=== PATIENT | female | born 1980 | race Caucasian/White ===

== ENCOUNTER 2024-01-13 08:57 | Emergency (ER) | payer BC, SELFPAY ==
[2024-01-13 09:01] VITALS: BP 143/109
--- NOTE | 2024-01-13 09:52 | EDRN ---
Rebel REYNOSO in w/ pt
--- NOTE | 2024-01-13 09:58 | ED.GENMED ---
History of Present Illness
General
Chief Complaint: Abdominal Symptoms
Source: patient
Exam Limitations: none
Time Seen by Provider: 01/13/24 09:46
Travel History
Have you had any contact with someone who has COVID-19?: No
Do you have any symptoms of coronavirus? Fever > 100 degrees, chills, cough, shortness of breath, sore throat, loss of taste or smell, muscle aches, or headache?: No
History of Present Illness
History of Present Illness:
43-year-old female otherwise healthy presents with complaints of 3 to 4 days worth of nausea vomiting and diarrhea. Vomiting has slowed but every time she tries to eat something she has watery stool. She has multiple episodes of watery stool
daily. She had a fever at the onset but that has since resolved. No known sick contacts. She has a history of cholecystectomy. No chest pain or shortness of breath. No other complaints at this time.
Past History
Past History
ED Past Medical History: GERD, Psychiatric (Anxiety), Other (RA, anxiety, IBS, PUD, Migraines, ovarian cysts) and Other ('flesh eating bacteria' - RUE)
ED Past Surgical History: and Orthopedic (Joint surgery on her foot, tenosynvectomy and the debridement of the right forearm due to infection)
Social History
Tobacco: Non-smoker
Alcohol: Occasional
Drug: None
Personal:
Living: with family
Employment: Employed
Family History
Family History: Other (reviewed and Noncontributory)
Phy Exam
Physical Exam
Physical Exam:
General: Tired appearing female no acute respiratory distress
HEENT: Normocephalic atraumatic mucosa dry neck is supple heart: Regular rate and rhythm no murmurs
Lungs: Clear to auscultation bilaterally no wheezing
Abdomen soft mildly diffusely tender no guarding or rebound normal bowel sounds nondistended
Extremities: No cyanosis or edema
Skin warm no rash or lesion
Course
Orders/Labs/Results
Orders:
Orders
01/13/24 10:01
0.9% Sodium Chloride 1000 ml [Nss] 1,000 ml IV BOLUS
Ondansetron Injectable [Zofran] 4 mg IV NOW STA
01/13/24 10:15
Complete Blood Count/With Diff Urgent
Comprehensive Metabolic Panel Urgent
Lipase Urgent
01/13/24 11:42
0.9% Sodium Chloride 1000 ml [Nss] 1,000 ml IV BOLUS
01/13/24 12:09
Acetaminophen [Tylenol] 1,000 mg PO NOW STA
Potassium Chloride [KCl] 40 meq PO NOW STA
01/13/24 12:23
Norovirus by PCR Urgent
DAVID Source: Feces/Stool
Specimen Description:
Date Specimen was Collected: 01/13/24
Time Specimen was Collected: 12:22
STOOL [C difficile Antigen & Toxins] Urgent
DAVID Source: Feces/Stool
Specimen Description:
Date Specimen was Collected: 01/13/24
Time Specimen was Collected: 12:22
Stool Culture Urgent
DAVID Source: Feces/Stool
Specimen Description:
Date Specimen was Collected: 01/13/24
Time Specimen was Collected: 12:22
Abnormal Lab Results
01/13/24
10:15
MCH 32.2 H pg
(27.0-31.0)
Absolute Lymphs (auto) 1.1 L 10^3/uL
(1.2-3.4)
Lymphocytes % 19.3 L %
(20.5-51.1)
Potassium 3.2 L mmol/L
(3.5-5.1)
Chloride 109 H mmol/L
(98-107)
Carbon Dioxide 17 L mmol/L
(22-30)
BUN 25 H mg/dl
(7-17)
ALT 37 H U/L
(0-35)
01/13/24 10:15
01/13/24 10:15
Vital Signs
Initial and Last Documented VS:
Initial Vital Signs
Temp Pulse Resp BP Pulse Ox
98.4 F 86 16 143/109 98
01/13/24 09:01 01/13/24 09:01 01/13/24 09:01 01/13/24 09:01 01/13/24 09:01
Last Documented Vital Signs
Temp Pulse Resp BP Pulse Ox
98.4 F 54 16 108/63 98
01/13/24 09:01 01/13/24 12:05 01/13/24 12:05 01/13/24 12:05 01/13/24 12:05
MDM/Problems Addressed
Differential Diagnosis Includes:
Nausea vomiting diarrhea. Question viral illness. Will check stool cultures to evaluate for foodborne illness and norovirus. Abdomen exam quite benign mildly diffuse tender but no localizing tenderness. Hold off on imaging for now but will
hydrate and treat symptoms with Zofran and Toradol. Labs pending
*Critical Care Note
Total Time (30-74mins, 75-104mins- exclusive of procedures): Not Applicable
Update Note
Update Note:
Patient reevaluated. Headache is improved. Color is improved. She was noted to have slightly low potassium this was replaced by mouth. She was given 2 L of fluid. Was notified by nurse of increased right upper quadrant abdominal pain. Prior
cholecystectomy. Reexamination provides diffuse abdominal discomfort. Again discussed the role will hold off for now. Patient idea of going home now she is tolerating oral fluids. Recommended clear liquids and a bland diet from there. Stable
for discharge. Likely viral illness
ED Attending Note
-
Portions of this chart may have been created with voice recognition software.� Occasional wrong word or��sound alike� substitutions may have occurred due to the inherent limitations of voice recognition software.
Discharge Plan
Departure
Patient Disposition: Home (Routine Discharge)
Date of Disposition: 01/13/24
Time of Disposition: 13:33
Patient with high blood pressure during this ER visit?: No
Discharge Problem:
Acute gastroenteritis
Instructions: Nausea and Vomiting, Adult (DC)
Prescriptions:
New
ondansetron 4 mg tablet,disintegrating
4 mg PO Q8H PRN (Reason: nausea and vomiting) Qty: 10 0RF
No Action
topiramate 25 MG tablet
50 mg PO BID
dicyclomine 20 MG tablet
10 mg PO TID
losartan 25 MG tablet
25 mg PO DAILY
Zofran:
4 mg PO Q8HPRN PRN (Reason: nausea)
sucralfate 1 GM/10 ML suspension
1 gm PO BID
Multivitamin
1 tab PO DAILY
omeprazole 20 MG capsule,delayed release(DR/EC)
20 mg PO BID
montelukast 10 MG tablet
1 tab PO DAILY
Tylenol
2 tab PO PRN PRN (Reason: discomfort)
rizatriptan 10 MG tablet
10 mg PO PRN PRN (Reason: breakthrough migraine)
hydrocodone-acetaminophen 1 TABLET tablet
1 - 2 tab PO Q4HPRN PRN (Reason: moderate to severe pain) Qty: 20 0RF
Referrals:
Javier Palacios CRNP [Family Provider] -
Activity Restrictions/Additional Instructions:
Rest. Drink plenty of clear liquids. Use zofran if needed for nausea. Advance to bland diet as tolerated. Return if needed otherwise.
Interventions
Interventions:
*Risk Screen - Suicide Last Done: 01/13/24 10:10
*General Assessment Last Done: 01/13/24 10:10
*Neglect/Abuse Screening Last Done: 01/13/24 10:10
ED- Fall Risk Assessment Last Done: 01/13/24 10:10
*ED COVID-19 Vaccine History Last Done: 01/13/24 09:01
[id number] Assessment Last Done: 01/13/24 10:10
[2024-01-13 10:10] VITALS: BMI 39.9
[2024-01-13] MEDS: NSS 1000 IV ×2 (10:20→12:20)
[2024-01-13] MEDS: ZOFRAN 4 MG IV (10:23)
[2024-01-13 10:24] LABS: % Basophils 0.5 % (0-2); % Eosinophils 1.4 % (0-6); % Immature Granulocytes 0.5 % (0-0.5); % Lymphocytes 19.3 % (20.5-51.1); % Monocytes 8.9 % (1.7-9.3); % Neutrophils 69.4 % (42.2-75.2); Absolute Eosinophils 0.1 10^3/uL (0-0.7); Absolute Lymphocytes 1.1 10^3/uL (1.2-3.4); Absolute Monocytes 0.5 10^3/uL (0.1-0.6); Hematocrit 38.1 % (37.0-47.0); Hemoglobin 13.6 g/dL (12.0-16.0); Mean Corp Hgb Conc. 35.7 g/dL (33.0-37.0); Mean Corpuscular Hgb 32.2 pg (27.0-31.0); Mean Corpuscular Volume 90.1 fL (81.0-99.0); Mean Platelet Volume 10.3 fL (7.4-10.4); Nucleated Red Blood Cells % 0 %; Platelet Count 194 10^3/uL (130-400); Red Blood Cell Count 4.23 10^6/uL (4.20-5.40); Red Cell Dist. Width 12.2 % (11.5-14.5); White Blood Cell Count 5.7 10^3/uL (4.8-10.8)
[2024-01-13 10:32] VITALS: BP 139/82
--- NOTE | 2024-01-13 10:32 | EDRN ---
Receptacle for stool spec placed on toilet w/ pt informed stool spec is needed.
[2024-01-13 10:35] LABS: ALT (SGPT) 37 U/L (0-35); AST (SGOT) 31 U/L (14-36); Albumin 4.3 g/dl (3.5-5.0); Alkaline Phosphatase 72 U/L (38-126); Blood Urea Nitrogen 25 mg/dl (7-17); Calcium 8.9 mg/dl (8.4-10.2); Carbon Dioxide 17 mmol/L (22-30); Chloride 109 mmol/L (98-107); Estimated Creatinine Clearance > 125 ml/min; Glucose 84 mg/dl (70-99); Lipase 65 U/L (23-300); Potassium 3.2 mmol/L (3.5-5.1); Sodium 136 mmol/L (135-145); Total Bilirubin 0.5 mg/dl (0.2-1.3); Total Protein 7.1 g/dl (6.3-8.2); eGFR > 60.00
[2024-01-13 12:05] VITALS: BP 108/63
[2024-01-13] MEDS: KCL 40 MEQ PO (12:20)
[2024-01-13] MEDS: TYLENOL 1000 MG PO (12:21)
[2024-01-13 13:00] VITALS: BP 120/74
--- NOTE | 2024-01-13 13:05 | EDRN ---
Rebel REYNOSO was informed about pt's RUQ abdominal pain radiating into her back at a 7/10, rest of her abdomen dull pain 4/10.
== END 2024-01-13 13:53 | disposition home or self-care (01) ==
LOC: EMR 08:57
PROVIDERS: Physician Assistant; EMERGENCY PHYSICIAN Emergency Medicine; FAMILY PHYSICIAN Nurse Practitioner Family
DX: K52.9 Noninfective gastroenteritis and colitis, unspecified (principal); Z90.49 Acquired absence of other specified parts of digestive tract
CPT/HCPCS: 99284; 96374; 96361 ×2; 80053; 83690; 85025; 87045; 87046; 87324; 87427; 87449; 87798

== ENCOUNTER 2024-04-25 18:12 | Inpatient (IN) | payer BC, SELFPAY ==
[2024-04-25] VITALS (7 sets, daily range): BP systolic 115–156; BP diastolic 71–92; BMI 41.7; BMI 40.6
--- NOTE | 2024-04-25 13:43 | ED.GENMED ---
History of Present Illness
General
Chief Complaint: Chest Pain
Source: patient
Exam Limitations: none
Time Seen by Provider: 04/25/24 13:36
Travel History
Have you had any contact with someone who has COVID-19?: No
Do you have any symptoms of coronavirus? Fever > 100 degrees, chills, cough, shortness of breath, sore throat, loss of taste or smell, muscle aches, or headache?: No
History of Present Illness
History of Present Illness:
See MDM
Past History
Past History
ED Past Medical History: GERD, Psychiatric (Anxiety), Other (RA, anxiety, IBS, PUD, Migraines, ovarian cysts) and Other ('flesh eating bacteria' - RUE)
ED Past Surgical History: and Orthopedic (Joint surgery on her foot, tenosynvectomy and the debridement of the right forearm due to infection)
Social History
Tobacco: Non-smoker
Alcohol: Occasional
Drug: None
Personal:
Living: with family
Employment: Employed
Family History
Family History: Other (reviewed and Noncontributory)
Phy Exam
Physical Exam
Physical Exam:
See MDM
Scores
Heart Score for Chest Pain Patients
STEMI patient?: No
History: Moderately Suspicious
ECG: Normal
Age: </= 45 years
Risk Factors: 1 or 2 Risk Factors
Troponin: >1 - <3 x Normal Limit
Heart Score for Chest Pain Patients: 3
Heart Score Risk: 2.5% MACE over next 6 weeks
Course
Orders/Labs/Results
Orders:
Orders
04/25/24 13:20
ECG [Electrocardiogram (*1)] Urgent
Reason for Study: Chest Pain
EKG- Treatment ONCE
04/25/24 13:31
IV Insert/Care/Rem.- Treatment PRN
04/25/24 13:42
Complete Blood Count/With Diff Urgent
Comprehensive Metabolic Panel Urgent
Troponin I Urgent
04/25/24 13:43
CR Chest - 2 Views Urgent
Comment:
Reason For Exam: left side chest pain
04/25/24 15:35
EKG [Electrocardiogram (*1)] Urgent
Reason for Study: Chest Pain
EKG- Treatment ONCE
04/25/24 15:38
Troponin I Urgent
04/25/24 16:40
Nitroglycerin Sublingual [Nitrostat (Sublingual)] 0.4 mg .ROUTE .STK-MED ONE
04/25/24 16:42
Nitroglycerin Sublingual [Nitrostat (Sublingual)] 0.4 mg SL NOW STA
04/25/24 17:45
PTT Urgent
Prothrombin Time Urgent
Heparin 4,000 units IV NOW STA
Heparin INFUSION titrate rate - CONTINUOUS Heparin 92724 Units/250 ml 25,000 units in 250 ml IV PER PROTOCOL
Weight to be used for heparin protocol in kilograms (kg):: 117.1
Protocol:: Cardiac Tx/Acute Coronary
PTT Goal Range to be used:: PTT 73 to 111 seconds
Order type:: Initial
INITIAL Infusion Dose (UNITS/KG/hr) & then follow protocol:: 15 units/kg/hr
Infusion Dose in UNITS/hr & then follow protocol (UNITS/hr):: 1,500
INFUSION RATE in mL/hr & then follow protocol (mL/hr):: 15
PTT less than or equal to 64 seconds:: Increase rate by 200 units/hr (+ 2 mL/hr)
PTT 64.1 to 72.9 seconds:: Increase rate by 100 units/hr (+ 1 mL/hr)
PTT 73 to 111 seconds:: Target Range. No change in rate.
PTT 111.1 to 130.9 seconds:: Decrease rate by 100 units/hr (- 1 mL/hr)
PTT 131 to 199.9 seconds:: HOLD for 1 hr. Then decrease rate by 200 units/hr (- 2 mL/hr)
PTT greater than or equal to 200 seconds:: HOLD for 2 hrs & Notify Provider. Then decrease by 200 units/hr (-
2 mL/hr)
Lab follow-up:: Each change, PTT q6h until 2 consecutive are therapeutic. Then PTT
daily.
Nitroglycerin Ointment [Nitro-Bid] 1 inch TOPICAL NOW STA
Pharmacy Request to Place See Dose Instructions PO NOW STA
Discontinue all Active Warfarin orders?: Yes
Nursing to Place Non Medication Order As Directed
Physician Order: PTT 6 hours after initial start of Heparin infusion
04/25/24 18:[address] See Dose Instructions IV DIRECTED
Abnormal Lab Results
04/25/24
13:42
RBC 3.85 L 10^6/uL
(4.20-5.40)
Hct 35.4 L %
(37.0-47.0)
MCH 33.8 H pg
(27.0-31.0)
MPV 10.5 H fL
(7.4-10.4)
Immature Gran % 0.6 H %
(0-0.5)
Chloride 113 H mmol/L
(98-107)
Carbon Dioxide 19 L mmol/L
(22-30)
BUN 19 H mg/dl
(7-17)
04/25/24 13:42
04/25/24 13:42
Vital Signs
Initial and Last Documented VS:
Initial Vital Signs
Pulse Resp BP Pulse Ox
66 18 156/92 99
04/25/24 13:18 04/25/24 13:18 04/25/24 13:18 04/25/24 13:18
Last Documented Vital Signs
Pulse Resp BP Pulse Ox
63 22 115/80 98
04/25/24 17:30 04/25/24 17:30 04/25/24 17:00 04/25/24 14:00
MDM/Problems Addressed
Differential Diagnosis Includes:
HPI and MDM Narrative:
44-year-old female presenting with resolving chest pain. Patient was sitting on a computer and she felt a pain in her left shoulder that went down her left arm. This is associated with [id number]. Patient got worried because there is a
strong family history of heart related disease with her father and grandfather. When EMS arrived, they gave aspirin 1 nitroglycerin. Patient states symptoms started to improve.
I discussed with patient that it is somewhat concerning that symptoms did improve with nitro but it does not necessarily mean that she has ACS. Symptoms were unrelated to exertion. Since symptoms did improve with nitro, will obtain 2 troponin rule
out. Given her history, will place on cardiac callback tracker troponins are negative
Physical exam
General: Well appearing and non-toxic
HEENT: protecting airway
Neck: appears supple
CV: No evidence of cyanosis. Regular rate and rhythm
Resp: No accessory muscle use. Lungs clear
Abd: Non-distended
Extremities: No deformities
Neuro: alert
Psych: Normal affect
Skin: Intact
Problems Addressed including Acute and Chronic Conditions affecting care:
1. Chest pain
Acuity: acute
Prognosis: stable
Details: Symptoms did improve with nitroglycerin. However, it was nonexertional. Will obtain 2 troponin rule out. EKG is nonischemic
Updates
The second troponin did come back elevated but still within normal limits. Patient given a second nitroglycerin which did help with symptoms. Given that her symptoms are improving with nitroglycerin and she has a strong family history of cardiac
disease, cardiology was consulted
5:45 PM Case discussed with cardiology at bedside. Will admit on heparin drip for cardiac cath tomorrow. Will place nitroglycerin ointment
Differential Diagnosis (but not limited to): GERD, musculoskeletal pain, ACS
Testing considered: D-dimer but symptoms improving
Drug therapy (if applicable): OTC meds, please see d/c instruction regarding Rx drugs
Amount and/or Complexity of Data Reviewed
Clinical info obtained from: Patient
External data reviewed: N/A
Labs I independently reviewed (but not limited to): Troponin
Radiology: X-ray independently reviewed: Chest x-ray clear
Pulse Ox: not hypoxic
EKG independently reviewed: Sinus rhythm, normal axis, no STEMI
Deputy Felony Clerk: Sinus rhythm
Critical Care: The high probability of a clinically significant, sudden or life threatening deterioration of the cardiovascular system(s) required my full and direct attention, intervention and personal management. The aggregate critical care time
was 33 minutes. This time is in addition to time spent performing reported procedures but includes the following:
[x] Data Review and interpretation
[x] Patient assessment and monitoring of vital signs
[x] Documentation
[x] Medication orders and management
Risk of Complication:
Social Determinants of health: Good social support
Discussed with other providers: Cardiology
Escalation of Care includes Admit/Obs: Given the concern for acute coronary syndrome, will admit on heparin drip
Occasional wrong word or 'sound a like' substitutions may have occurred due to the inherent limitations of voice recognition software. Read the chart carefully and recognize, using context, where substitutions have occurred.
*Critical Care Note
Total Time (30-74mins, 75-104mins- exclusive of procedures): 33 min
ED Attending Note
-
Portions of this chart may have been created with voice recognition software.� Occasional wrong word or��sound alike� substitutions may have occurred due to the inherent limitations of voice recognition software.
Discharge Plan
Departure
Patient Disposition: Admit
Date of Disposition: 04/25/24
Time of Disposition: 17:49
Admit to: Telemetry
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
Discharge Problem:
Chest pain
Prescriptions:
No Action
losartan 50 mg Tablet
50 mg PO DAILY
acetaminophen [Tylenol] 325 mg Tablet
650 mg PO BIDPRN PRN (Reason: mild pain)
diphenoxylate-atropine 2.5-0.025 mg Tablet
1 tab PO QIDPRN PRN (Reason: diarrhea)
Theragen Tablet
1 tab PO DAILY
omeprazole 40 mg Capsule,Delayed Release(Dr/Ec)
40 mg PO DAILY
ondansetron 8 mg Tablet,Disintegrating
8 mg PO [id number] PRN (Reason: nausea/vomiting)
topiramate 100 mg Tablet
200 mg PO DAILY
sertraline 50 mg Tablet
50 mg PO DAILY
dicyclomine 10 mg Capsule
20 mg PO AC
Referrals:
Javier Palacios CRNP [Family Provider] -
Interventions
Interventions:
*Risk Screen - Suicide Last Done: 04/25/24 13:33
*General Assessment Last Done: 04/25/24 13:33
*Neglect/Abuse Screening Last Done: 04/25/24 13:33
*ED COVID-19 Vaccine History Last Done: 04/25/24 13:18
ED- Cardiac Assessment Last Done: 04/25/24 13:33
Discharge Date and Time
Print Language: VIET[place]ESE
[2024-04-25 14:02] LABS: % Basophils 0.7 % (0-2); % Eosinophils 1.8 % (0-6); % Immature Granulocytes 0.6 % (0-0.5); % Monocytes 4.4 % (1.7-9.3); % Neutrophils 71.5 % (42.2-75.2); Absolute Basophils 0.1 10^3/uL (0-0.2); Absolute Eosinophils 0.1 10^3/uL (0-0.7); Absolute Lymphocytes 1.5 10^3/uL (1.2-3.4); Absolute Monocytes 0.3 10^3/uL (0.1-0.6); Absolute Neutrophils 5.1 10^3/uL (1.4-6.5); Hematocrit 35.4 % (37.0-47.0); Mean Corp Hgb Conc. 36.7 g/dL (33.0-37.0); Mean Corpuscular Hgb 33.8 pg (27.0-31.0); Mean Corpuscular Volume 91.9 fL (81.0-99.0); Mean Platelet Volume 10.5 fL (7.4-10.4); Nucleated Red Blood Cells % 0 %; Platelet Count 190 10^3/uL (130-400); Red Blood Cell Count 3.85 10^6/uL (4.20-5.40); Red Cell Dist. Width 12.6 % (11.5-14.5); White Blood Cell Count 7.1 10^3/uL (4.8-10.8)
[2024-04-25 14:10] LABS: ALT (SGPT) 21 U/L (0-35); AST (SGOT) 28 U/L (14-36); Alkaline Phosphatase 70 U/L (38-126); Blood Urea Nitrogen 19 mg/dl (7-17); Calcium 9.1 mg/dl (8.4-10.2); Carbon Dioxide 19 mmol/L (22-30); Chloride 113 mmol/L (98-107); Estimated Creatinine Clearance 117 ml/min; Glucose 91 mg/dl (70-99); Sodium 140 mmol/L (135-145); Total Bilirubin 0.5 mg/dl (0.2-1.3); eGFR > 60.00
[2024-04-25 14:22] LABS: Troponin I < 0.012 ng/ml
[2024-04-25 16:19] LABS: Troponin I 0.021 ng/ml
[2024-04-25] MEDS: NITROSTAT (SUBLINGUAL) 0.400000000000000022 MG SL (16:42)
--- NOTE | 2024-04-25 17:36 | HPS.HSE ---
Addendum entered and electronically signed by Otoniel Pandey MD 04/25/24 17:58:
I saw and examined the patient.
The LIBRARIAN's note was reviewed and I agree with the note.
Comment: 44-year-old female with a past medical history of obesity, hypertriglyceridemia, preeclampsia, family history of premature coronary disease in her father and paternal grandfather, presents for evaluation of chest pain. She states over the
last several days, she has had increased shortness of breath and diaphoresis when walking her dog. She has had to stop and rest. Today, while sitting and working at her desk, she had sudden onset left-sided chest pain that she describes as an ache
radiating up into her left shoulder and down her arm. She does not use NSAIDs. This was an 8-9 out of 10. She called 911 and had no relief until she was given nitroglycerin by EMS. It was not relieved with position. It was not worse with
inspiration. No fever or chills. No recent long travel. She does have reflux, but she states this felt completely different than her reflux. She has history of cholecystectomy. On exam she is a regular rate and rhythm with normal S1-S2 no
murmurs or gallops were appreciated lungs are clear to auscultation bilaterally.She was alert and oriented x 3. Lower extremities were warm well-perfused. Chest x-ray was normal EKG showed sinus rhythm with nonspecific T wave changes. Initial
troponin was negative, she had recurrent pain that required a nitroglycerin. The next troponin was 0.02. Overall, symptoms and history are concerning for unstable angina/ACS. She has risk factors of obesity, hypertriglyceridemia, preeclampsia and
a family history. I discussed this with her and recommended we proceed to cardiac catheterization in the morning. This can be done urgently if needed. Will continue to trend troponin. Will start heparin drip, statin and nitrate. Echocardiogram
to be done in the morning. Differential diagnosis can include gastritis or esophageal spasm, but these seem less likely. They will be considered should her catheterization be normal.
Original Note:
Family Physician
-
Family Physician: AROLDO Zayas
Chief Complaint
-
Chest pain
History of Present Illness
Keiry Kaye is a 44-year-old female with GERD, hypertension, preeclampsia requiring at 35 weeks, dyslipidemia, migraines, obesity, and anxiety disorder who presented to the emergency department with a chief complaint of chest discomfort.
She was sitting at her desk when she had the sudden onset of left-sided chest pain. She describes it as an ache. It radiated down her left arm. She had the sensation of numbness and tingling in her bilateral hands. She endorsed associated
diaphoresis and nausea. The entire episode lasted approximately 30 minutes. She called EMS. She was given aspirin and sublingual nitroglycerin. She received relief with the sublingual nitroglycerin. Upon arrival to the emergency department, her
troponin was found to be <0.012. Her EKG appeared nonischemic. Follow-up troponin 0.021. She also had an episode of chest discomfort while she was here. This sensation was reminiscent of this morning. It was relieved with sublingual
nitroglycerin. Her chest pain is not recent producible. It does not improve with position changes.
Upon further review, she reports walking her 1-year-old puppy. Over the past 2 weeks she has felt more diaphoresis and exhaustion on the same length of walk. She thought this was related to the heat. She feels like she takes a long time to cool
off and recover which is abnormal for her.
Medical History
Past Medical History
Past Medical History: Reports GERD, HTN, Hypercholesterolemia, Psychiatric (Anxiety) and Other (Migraines)
Past Surgical History: Reports Cholecystectomy and Gynocological
Social History
Tobacco: Non-smoker
Alcohol: Occasional
Drug: None
Personal:
Living: With Family
Employment: Employed
Family History
Family History: Early CAD (Grandfather at the age of 35 due to MT. Her father was diagnosed with coronary artery disease in his 50s. He had bypass surgery and from a subsequent MT in his 60s.)
Allergies / Home Medications
Allergies reflects when Allergies were last updated in [facility].
Home Medications with original date entered in [facility]
Allergy/Medication List:
Allergies:
Reglan caused muscle spasm
Lisinopril caused lip swelling
NSAID caused stomach ulcer
Home medication list:
Acetaminophen 650 mg p.o. twice daily as needed mild pain
Dicyclomine 20 mg p.o. AC
Diphenoxylate-atropine 1 tab p.o. 4 times daily as needed diarrhea
Losartan 50 mg daily
Omeprazole 40 mg p.o. daily
Oh dutasteride 8 mg p.o. every 12 hours as needed nausea vomiting
Sertraline 50 mg p.o. daily
Multivitamin 1 tablet p.o. daily
Topiramate 200 mg p.o. daily
Review of Systems
-
A 12 point ROS was completed and negative except as noted: Yes
Constitutional: Reports Fatigue
EENT: Reports No Symptoms
Respiratory: Reports No Symptoms
Cardiac: Reports See HPI
Abdomen/GI: Reports See HPI
: Reports No Symptoms
Musculoskeletal: Reports No Symptoms
Skin: Reports No Symptoms
Neurological: Reports No Symptoms
Endocrine: Reports No Symptoms
Hematologic/Lymphatic: Reports No Symptoms
Psych: Reports No Symptoms
Physical Exam
Vital Signs
Vital Signs
Pulse Resp BP Pulse Ox
66 22 115/80 98
04/25/24 17:15 04/25/24 17:15 04/25/24 17:00 04/25/24 14:00
Physical Exam
General: Well Developed, Well Nourished, No Apparent Distress and Comfortable
HEENT: NormoCephalic, Anicteric and Moist mucous membranes
Respiratory: Clear and Non Labored Respirations
Cardiac: S1/S2 and Regular Rhythm
Breast: Deferred by me
GI: Soft, Non Tender, Non Distended and Normal Bowel Sounds
Rectal: Deferred by Provider
Genito-urinary: Deferred by me
Musculoskeletal: No Clubbing, No Cyanosis and No Edema
Skin: Warm and Dry
Neuro: AO x 3
Hematologic/Lymphatic: No Lymphadenopathy
Psych: Calm
Laboratory Results
-
04/25/24 13:42
04/25/24 13:42
Laboratory Results
Total Bilirubin 0.5 mg/dl (0.2-1.3) 04/25/24 13:42
AST 28 U/L (14-36) 04/25/24 13:42
ALT 21 U/L (0-35) 04/25/24 13:42
Alkaline Phosphatase 70 U/L (38-126) 04/25/24 13:42
Troponin I 0.021 ng/ml D 04/25/24 15:38
Data Reviewed
-
Diagnostic Radiology: Report Reviewed by me (EKG: Sinus rhythm, rate 61; CXR: No acute cardiopulmonary process)
Lab Data: Labs Reviewed by me
Old Records: Reviewed (Outpatient PCP notes)
Impression/Plan
-
BACKGROUND: 44F with GERD, hypertension, preeclampsia requiring at 35 weeks, dyslipidemia, migraines, obesity, and anxiety disorder who presented to the emergency department with a chief complaint of chest discomfort
IMPRESSION/PLAN:
Chest pain, concern for ACS
-Relieved with nitroglycerin, start Nitropaste
-Start heparin gtt
-Received ASA 324 mg by EMS, continue 81 mg daily
-Echocardiogram
Hypertension, chronic
-Delivered son at 35 weeks due to preeclampsia, has been on antihypertensive agents since then
-Note lisinopril caused lip swelling
-Her BP is stable, continue losartan
Dyslipidemia
-Lipid panel 12/15/2022: TC 244, LDL 115, HDL 91, TG 268
-Start atorvastatin 40 mg this evening
IBS, on as needed diphenoxylate�atropine
GERD, on omeprazole
Obesity, BMI 41.7, she would benefit from weight loss
[2024-04-25] MEDS: NITRO-BID 1 INCH TOPICAL (17:49)
[2024-04-25 18:15] LABS: APTT 24.3 Sec (23.4-35.0); INR 1.01; PT 13.1 Sec (11.4-14.6)
[2024-04-25] MEDS: HEPARIN 4000 UNITS IV (19:05)
[2024-04-25] MEDS: HEPARIN 25000 UNITS/250 ML IV (19:06)
--- NOTE | 2024-04-25 20:51 | PTCARENOTE ---
Pt. admitted into room 2256 from ED AAOx3, VSS, NSR on the monitor. No complaints of chest pain/discomfort. Heparin gtt infusing as per order. Pt. independent and ambulatory. Plan of care discussed, understanding verbalized. Pt. currently
resting in bed quietly.
[2024-04-25] MEDS: TYLENOL 650 MG PO (21:18)
[2024-04-25] MEDS: LIPITOR 40 MG PO (21:18)
[2024-04-25] MEDS: ZOFRAN ODT (ORALLY DISINTEGRATING) 8 MG PO (23:26)
[2024-04-25] MEDS: ULTRAM 50 MG PO (23:51)
[2024-04-26 00:26] LABS: APTT 52.8 Sec (23.4-35.0)
[2024-04-26] MEDS: NITRO-BID 0.5 INCH TOPICAL ×3 (00:33→12:15)
[2024-04-26 00:34] VITALS: BP 118/70
[2024-04-26 00:39] LABS: Troponin I < 0.012 ng/ml
--- NOTE | 2024-04-26 03:41 | DOWNTIME ---
There was a [employer] Client General Accountant Downtime on 04/26/2024 from 0100 to 04/26/2024 at 0337. Downtime documentation of patient's care, including medication administrations, has been reconciled in the electronic record per guidelines. Refer to the
patient's paper chart under the miscellaneous tab to see printed paper medication records and downtime forms.
[2024-04-26 05:32] VITALS: BP 112/62
[2024-04-26 06:33] VITALS: BP 113/75
[2024-04-26 06:54] LABS: APTT 69.4 Sec (23.4-35.0)
[2024-04-26] MEDS: COZAAR 50 MG PO (08:04)
[2024-04-26] MEDS: ASPIR LOW (ENTERIC COATED) 81 MG PO (08:04)
[2024-04-26] MEDS: TOPAMAX 200 MG PO (08:05)
[2024-04-26] MEDS: PROTONIX 40 MG PO (08:05)
[2024-04-26] MEDS: BENTYL 20 MG PO ×2 (08:05→12:15)
[2024-04-26] MEDS: ZOLOFT 50 MG PO (08:05)
[2024-04-26] MEDS: THERAGRAN 1 TABLET PO (08:05)
--- NOTE | 2024-04-26 08:09 | PTCARENOTE ---
Assumed care of patient from security strategist RN AAO x 3 , sleeping upon rounds, awakes easily, denies chest pain at present. No headache currently. Heparin drip infusing. Assessment otherwise benign. Maintain NPO.
[2024-04-26 09:21] LABS: Blood Urea Nitrogen 21 mg/dl (7-17); Calcium 8.9 mg/dl (8.4-10.2); Carbon Dioxide 17 mmol/L (22-30); Chloride 113 mmol/L (98-107); Estimated Creatinine Clearance > 125 ml/min; Glucose 99 mg/dl (70-99); HDL Cholesterol 69 mg/dl; Potassium 3.7 mmol/L (3.5-5.1); Sodium 138 mmol/L (135-145); Total Cholesterol 197 mg/dl (50-199); eGFR > 60.00
[2024-04-26 09:54] LABS: LDL Cholesterol, Calculated 89 mg/dl; Triglyceride 198 mg/dl (10-149); Very Low Density Lipoprotein 39 mg/dl (0-30)
[2024-04-26] MEDS: HEPARIN 25000 UNITS/250 ML IV (10:43)
[2024-04-26 12:10] VITALS: BP 99/51
[2024-04-26] MEDS: ULTRAM 50 MG PO (12:14)
--- NOTE | 2024-04-26 13:37 | CM ---
Chart reviewed. Patient is independent of ADLS, lives with her and son in a split level, 2 EFRAIN, 0 DME. Plan is for the patient to return home. CM to follow
[2024-04-26 14:45] LABS: Glycohemoglobin (HgbA1c) 4.7 % (4.0-5.6)
--- NOTE | 2024-04-26 15:49 | W.PN.CD ---
Today's Communication / Plan
-
Cardiac catheterization today.
Impression / Plan
-
Impression/Plan: 44 y/o female with family history of premature CAD and personal history of HTN, HLD and pre-eclampsia admitted with increasing chest pressure/HART concerning for ACS.
#Chest pressure/HART
-Concerning for ACS.
-Troponin negative.
-Echo shows normal LV function (LVEF 60-65%), moderate MR.
-High pretest probability. Cardiac catheterization for clarification of coronary anatomy today.
#HTN
-Chronic, stable.
-Continue losartan.
#HLD
-Chronic, stable.
-Total cholesterol = 197, LDL = 89, HDL = 69, Triglycerides = 198.
-Started on atorvastatin.
Subjective/Interval History:
No acute events.
DATA:
TTE, 04/26/2024:
CONCLUSIONS
Normal left ventricular size and systolic function.
LV ejection fraction is 60-65%.
Moderate eccentric mitral regurgitation.
Mild tricuspid regurgitation.
No prior study available for comparison.
Physical Exam
Vital Signs/Labs
Vital Signs
Temp Pulse Resp BP Pulse Ox
36.6 C 81 18 99/51 99
04/26/24 12:13 04/26/24 12:10 04/26/24 12:13 04/26/24 12:15 04/26/24 12:13
04/25/24 04/26/24 04/27/24
11:59 11:59 11:59
Actual Weight 114 kg
04/25/24 13:42
04/26/24 08:39
PT 13.1 Sec (11.4-14.6) 04/25/24 17:57
INR 1.01 04/25/24 17:57
APTT 69.4 Sec (23.4-35.0) H 04/26/24 06:32
Triglycerides 198 mg/dl (10-149) H 04/26/24 08:39
LDL Cholesterol, Calc 89 mg/dl 04/26/24 08:39
VLDL Cholesterol, Calc 39 mg/dl (0-30) H 04/26/24 08:39
HDL Cholesterol 69 mg/dl 04/26/24 08:39
LAB Results
04/25/24 04/25/24 04/26/24
13:42 15:38 00:10
Troponin I < 0.012 0.021 D < 0.012
Physical Exam
Constitutional: No acute distress and Comfortable
EENT: Anicteric and Moist mucous membranes
Cardiovascular: Rhythm & rate is regular, Pedal edema is absent, JVD pressure is normal, S1S2 is normal and Murmur/rub/gallop absent
Respiratory: Respiratory effort normal, Lungs clear to auscul., Wheeze Absent, Crackles Absent and Rhonchi Absent
GI: Soft, Distention absent, Flat, Non tender and Normal bowel sounds
Neuro/Psych: AO x 3
Data Reviewed
-
Date of Service: April 26, 2024
Medical Decision Making: Reviewed Test Results, Independent Historian Assessment and Test Interpretation
EKG: Tracing Personally Visualized and interpreted and Report Reviewed by me
Echo: Tracing Personally Visualized and interpreted and Report Reviewed by me
X-Ray/CT/US/MRI/NUC/PET: Image Personally Visualized and interpreted and Report Reviewed by me
Labs: Labs Reviewed by me
Old Records: Reviewed
--- NOTE | 2024-04-26 16:15 | ITS.CL.CATH ---
Emergency Room Clinician - Catheterization
Cardiac Catheterization
Procedure Report:
CARDIAC CATHETERIZATION REPORT
Date of Procedure: 04/26/2024
Referring: Renetta Pandey M.D.
INDICATION: High risk chest pain, numerous CAD risk factors.
PROCEDURE:
1. Left heart catheterization.
2. Coronary angiography.
ACCESS:
6 [place] right radial artery.
CATHETERS:
1. 5 [place] JR4.
2. 5 [place] JL 3.5.
HEMODYNAMIC DATA
Weight (kg): 114.0
AO (s/d/x, mmHg): 128/83/104
LV (s/x mmHg): 129/14
LEFT VENTRICULOGRAPHY: Not performed.
CORONARY ANGIOGRAPHY
Dominance: Right.
Left Main: Normal size, bifurcating vessel. There is no coronary artery disease.
LAD: Normal size vessel giving rise to 2 significant diagonals. The artery takes as sharp, downward turn immediately after the origin of D1. There is no coronary artery disease.
Ramus: Congenitally absent.
Circumflex: Normal size, nondominant vessel giving rise to several small marginals. There is no coronary artery disease.
RCA: Large size, dominant vessel with a large posterolateral arcade. There is no coronary artery disease.
INTERVENTION(S)
None.
Closure Device: Vascular band.
Radiation (mGy): 381.73
DAP (cm2.Gy): 33.2073
Fluoroscopy time (minutes): 2.1
Sedation time (minutes): 15
CONCLUSIONS
1. Right dominant circulation with no coronary artery disease.
2. Top normal filling pressures (LVEDP = 14 mmHg at 114.0 kg).
RECOMMENDATIONS:
1. Expectant management after cardiac catheterization via right radial approach.
2. Limited weight bearing on the right wrist for one week.
3. Stable for outpatient follow-up once the patient has completed vascular band removal protocol.
Copy to: Renetta Pandey M.D., AROLDO Zayas
George Calix DO, FACC, FACP
--- NOTE | 2024-04-26 16:22 | W.DS.TRANS ---
DC Summary - Fixture [employer]
-
Discharge Instructions:
Discharge Diagnosis/Procedures Cardiac cath
Diet Low Cholesterol
Driving Restrictions No driving for 24 hours
Instructions:
Stand-Alone Forms: DC Instructions- Cath/EP Lab
Changes to Home Medications: No
Discharge Medications:
DC Medications w/original date entered in [facility]
acetaminophen 325 mg tablet (Tylenol) 650 mg PO BIDPRN PRN mild pain 04/25/24
dicyclomine 10 mg capsule 20 mg PO AC Gastrointestinal Issue 04/25/24
diphenoxylate-atropine 2.5 mg-0.025 mg tablet 1 tab PO QIDPRN PRN diarrhea 04/25/24
losartan 50 mg tablet 50 mg PO DAILY Blood Pressure 04/25/24
omeprazole 40 mg capsule,delayed release 40 mg PO DAILY Gastrointestinal Issue 04/25/24
ondansetron 8 mg disintegrating tablet 8 mg PO [id number] PRN nausea/vomiting 04/25/24
sertraline 50 mg tablet 50 mg PO DAILY Depression 04/25/24
therapeutic multivitamin 1 tab PO DAILY Supplement 04/25/24
topiramate 100 mg tablet 200 mg PO DAILY Mental Health/Anxiety 04/25/24
Home Medication Changes
Pending Results: No
[2024-04-26 16:25] VITALS: BP 125/78
[2024-04-26 18:57] VITALS: BP 132/78
== END 2024-04-26 20:00 | disposition home or self-care (01) | DRG 287 ==
LOC: IVU 18:12
PROVIDERS: Emergency Medicine; Nurse Practitioner Gerontology; ADMITTING PHYSICIAN Internal Medicine Cardiovascular Disease; ATTENDING PHYSICIAN Internal Medicine Cardiovascular Disease; EMERGENCY PHYSICIAN Student in an Organized Health Care Education/Training Program; FAMILY PHYSICIAN Nurse Practitioner Family
PROC: B2111ZZ Fluoroscopy of Multiple Coronary Arteries using Low Osmolar Contrast (ICD-10-PCS; 2024-04-26)
PROC: 4A023N7 Measurement of Cardiac Sampling and Pressure, Left Heart, Percutaneous Approach (ICD-10-PCS; 2024-04-26)
DX: R07.9 Chest pain, unspecified (principal); Z68.41 Body mass index [BMI] 40.0-44.9, adult; I10 Essential (primary) hypertension; E66.9 Obesity, unspecified; I34.0 Nonrheumatic mitral (valve) insufficiency; E78.5 Hyperlipidemia, unspecified; K58.9 Irritable bowel syndrome, unspecified; K21.9 Gastro-esophageal reflux disease without esophagitis; F41.9 Anxiety disorder, unspecified; R06.00 Dyspnea, unspecified; Z79.899 Other long term (current) drug therapy; Z88.6 Allergy status to analgesic agent; Z88.8 Allergy status to other drugs, medicaments and biological substances; Z82.49 Family history of ischemic heart disease and other diseases of the circulatory system
CPT/HCPCS: 71046; 80048; 80053; 80061; 83036; 84484; 85025; 85610; 85730; 93005; 93306; 93458; 99291; C1894; Q9967

== ENCOUNTER → 2025-04-27 07:20 | Outpatient (REF) | payer BC, SELFPAY | LOC: WDC 07:20 | PROVIDERS: ATTENDING PHYSICIAN Nurse Practitioner Family | DX: Z12.31 Encounter for screening mammogram for malignant neoplasm of breast (principal) | CPT/HCPCS: 77063; 77067 ==

== ENCOUNTER → 2025-05-10 09:02 | Outpatient (REF) | payer BC, SELFPAY | LOC: WDC 09:02 | PROVIDERS: ATTENDING PHYSICIAN Nurse Practitioner Family | DX: R92.8 Other abnormal and inconclusive findings on diagnostic imaging of breast (principal) | CPT/HCPCS: 76642 ==

== ENCOUNTER → 2025-07-18 10:29 | Outpatient (REF) | payer BC, SELFPAY ==
[2025-07-18 12:37] LABS: Hematocrit 35.5 % (37.0-47.0); Hemoglobin 12.5 g/dL (12.0-16.0); Mean Corp Hgb Conc. 35.2 g/dL (33.0-37.0); Mean Corpuscular Volume 93.9 fL (81.0-99.0); Nucleated Red Blood Cells % 0 %; Platelet Count 178 10^3/uL (130-400); Red Cell Dist. Width 11.9 % (11.5-14.5)
[2025-07-18 13:08] LABS: ALT (SGPT) 22 U/L (0-35); AST (SGOT) 24 U/L (14-36); Albumin 4.0 g/dl (3.5-5.0); Alkaline Phosphatase 59 U/L (38-126); Blood Urea Nitrogen 10 mg/dl (7-17); Calcium 9.2 mg/dl (8.4-10.2); Carbon Dioxide 26 mmol/L (22-30); Chloride 107 mmol/L (98-107); Glucose 87 mg/dl (70-99); Potassium 3.6 mmol/L (3.5-5.1); Sodium 138 mmol/L (135-145); Total Protein 6.4 g/dl (6.3-8.2); eGFR > 60.00
[2025-07-18 14:44] LABS: Free T3 3.85 pg/ml (2.77-5.27)
[2025-07-19 15:22] LABS: Lyme Antibody Screen, EIA Negative (Negative)
== END ==
LOC: HWRAD 10:29
PROVIDERS: ATTENDING PHYSICIAN Nurse Practitioner Family
DX: R42 Dizziness and giddiness (principal); R51.9 Headache, unspecified
CPT/HCPCS: 36415; 70450; 80053; 84439; 84443; 84481; 85025; 86618

== ENCOUNTER → 2025-09-12 08:59 | Outpatient (REF) | payer BC, SELFPAY | LOC: EMG 08:59 | PROVIDERS: ATTENDING PHYSICIAN Orthopaedic Surgery; FAMILY PHYSICIAN Nurse Practitioner Family | DX: R20.0 Anesthesia of skin (principal) | CPT/HCPCS: 95886; 95909 ==